=== PATIENT | male | born 1985 | race Caucasian/White ===

== ENCOUNTER 2022-01-25 10:02 | Emergency (ER) | payer OTHER, SELFPAY ==
[2022-01-25 10:10] VITALS: BP 126/65; PULSE 90; RESP 18; TEMP 37; O2SAT 98
--- NOTE | 2022-01-25 10:15 | ED.CHESTPAIN ---
HPI - Chest Pain General Chief Complaint: Chest Pain Stated Complaint: heartburn sob chest pain Time Seen by Provider: 01/25/22 10:25 Source: patient Mode of arrival: ambulatory Limitations: no limitations History of Present Illness HPI narrative: 37-year-old male with a history of diabetes and MO presented for complaint of heartburn, chest pain, increased shortness of breath, and vomiting since yesterday. Patient also states he had to sleep most of the day yesterday. Endorses increased thirst and urination. He denies cough, abdominal pain, fevers or chills. Patient does not have a PCP, he states his last A1c was over 11 approximately 1 year ago has been taking 70/30 insulin that he buys [id number]. States he took some insulin last night. Has taken Tums, drank milk and ate bread for the heartburn symptoms that he described as mid chest tightness. States he just wants a work note to return tomorrow. Related Data Home Medications Medication Instructions Recorded Confirmed No Home Medications 01/25/22 01/25/22 Allergies Allergy/AdvReac Type Severity Reaction Status Date / Time Penicillins Allergy Unknown Rash Verified 01/25/22 10:24 lisinopril AdvReac Unknown Verified 01/25/22 10:36 Review of Systems Review of Systems: CONSTITUTIONAL: Denies body aches, fever, chills, or sweats. EYES: Denies visual changes, redness, or discharge. ENT: Denies rhinorrhea, congestion, sore throat, or otalgia. CARDIOVASCULAR: Denies palpitations, or edema. RESPIRATORY: Denies cough GASTROINTESTINAL: Denies abdominal pain GENITOURINARY: Denies dysuria or hematuria. SKIN: Denies rash, itching, or wounds. MUSCULOSKELETAL: Denies back pain, joint pain, or myalgia. NEUROLOGIC: Denies headache, numbness, tingling, or weakness. All systems reviewed & are unremarkable except as noted in HPI and below PMFSH Family History Family History Other Asthma Diabetes mellitus Family history of congestive heart failure Family history of malignant neoplasm Social History Social History Alcohol intake: never Comments At time of signature, I have reviewed and agree with nursing past medical, surgical, social and family history unless otherwise noted. Please see nursing chart for further information. There is no relevant family history pertinent to the presenting complaint Exam Narrative: GENERAL: Well-appearing EYES: EOMI. No redness or drainage. Conjunctivae normal. ENT: Mucous membranes pink and moist. No rhinorrhea. TMs normal bilaterally. Throat normal. Uvula midline. NECK: Normal AROM. Supple. No lymphadenopathy. CHEST: No respiratory distress. Clear to auscultation. HEART: Regular rate and rhythm. No murmur appreciated. ABDOMEN: Soft, nontender, nondistended, normal active bowel sounds. EXTREMITIES: Normal range of motion. No edema. SKIN: Warm, dry, no rash. Capillary refill normal. Normal skin turgor. NEURO: Alert and oriented x3. Gait steady. PSYCH: Talkative Course Course Emergency Course: Patient is aware of diagnosis, understands and agrees to treatment plan. Anticipatory guidance given. Patient agrees to follow-up as directed and is aware of reasons to seek care at the emergency department. Portions of this record may have been created with voice recognition software Level of Care: Express Care Visit Vital Signs Vital signs: Vital Signs Temperature 98.6 F 01/25/22 10:10 Pulse Rate 90 01/25/22 10:10 Respiratory Rate 18 01/25/22 10:10 Blood Pressure 126/65 01/25/22 10:10 Pulse Oximetry 98 01/25/22 10:10 Oxygen Delivery Room Air 01/25/22 10:10 Temperature 98.6 F 01/25/22 10:10 Pulse Rate 90 01/25/22 10:10 Respiratory Rate 18 01/25/22 10:10 Blood Pressure 126/65 01/25/22 10:10 Pulse Oximetry 98 01/25/22 10:10 Oxygen Delivery Room Air 01/25/22 1
--- NOTE | 2022-01-25 10:28 | ECG_ITS ---
Measurements Intervals [place] Rate: 88 P: 19 [place]: 145 QRS: 0 QRSD: 84 T: 28 QT: 346 QTc: 420 Interpretive Statements SINUS RHYTHM Nonspecific T-wave abnormality Abnormal ECG NO PREVIOUS ECG AVAILABLE FOR COMPARISON Electronically Signed On 01-25-2022 12:35:08 CDT by Mino Contreras M.D.
[2022-01-25 10:29] LABS: Glucose Point of Care > 500 mg/dl (65-105)
[2022-01-25] MEDS: ONDANSETRON HCL ODT 4 MG TABLET SUBLINGUAL (10:39)
== END 2022-01-25 10:50 | disposition left against medical advice (07) ==
PROVIDERS: Emergency Provider Nurse Practitioner Family
DX: E11.65 Type 2 diabetes mellitus with hyperglycemia (principal); R07.9 Chest pain, unspecified; Z79.4 Long term (current) use of insulin; R94.31 Abnormal electrocardiogram [ECG] [EKG]
CPT/HCPCS: 82948; 93005; 99203; A9270; G0463

== ENCOUNTER 2022-02-01 14:20 | Outpatient (CLI) | payer OTHER, SELFPAY ==
[2022-02-01 18:44] LABS: Hematocrit 47.3 % (42.0-52.0); Hemoglobin 15.4 g/dL (14.0-18.0); Mean Corpuscular HGB Conc 32.6 g/dl (32-36); Mean Corpuscular Hemoglobin 31.4 pg (26-34); Mean Corpuscular Volume 96.3 fl (80-100); Mean Platelet Volume 10.4 fl (7.4-10.4); Platelet Count Result 286 k/mm3 (150-375); Red Blood Count 4.91 M/mm3 (4.6-6.20); Red Cell Distribution Width 13.2 % (11.5-14.5); White Blood Count 7.4 K/mm3 (4.5-10.0)
[2022-02-01 19:26] LABS: Creatinine Urine 57.9 mg/dL
[2022-02-01 19:38] LABS: MALB Creatinine Ratio 22.8 mg/g (0-30); Microalbumin Urine Random 13.2 mg/L (0-16.7)
[2022-02-01 19:55] LABS: Hemoglobin A1C 11.2 % (<5.7)
[2022-02-01 20:21] LABS: LDL Cholesterol Direct 175 mg/dL
[2022-02-01 20:29] LABS: Alanine Aminotransferase 24 U/L (6-50); Albumin Level 4.5 g/dL (3.5-5.1); Alkaline Phosphatase 83 U/L (38-126); Anion Gap 10 mmol/L (8-16); Aspartate Amino Transferase 42 U/L (17-59); Bilirubin,Total 0.3 mg/dL (0.2-1.3); Blood Urea Nitrogen 13 mg/dL (9-20); Calcium 9.3 mg/dL (8.4-10.2); Carbon Dioxide 27 mmol/L (22-30); Chloride 105 mmol/L (98-107); Cholesterol 294 mg/dL (0-200); Estimated Glomerular Filt Rate > 60; Glucose 59 mg/dL (65-110); HDL Direct 74 mg/dL; Potassium 3.7 mmol/L (3.4-5.0); Sodium 142 mmol/L (137-145); Triglycerides 187 mg/dL (<150)
[2022-02-05 05:52] LABS: Triiodothyronine T3 Free 2.8 pg/mL (2.3-4.2)
== END 2022-02-01 14:21 | disposition home or self-care (01) ==
LOC: ANHBWCLAB 14:22
PROVIDERS: PCP Family Medicine; Visit Provider Family Medicine
DX: Z00.00 Encounter for general adult medical examination without abnormal findings (principal); E11.9 Type 2 diabetes mellitus without complications; K21.9 Gastro-esophageal reflux disease without esophagitis; E07.9 Disorder of thyroid, unspecified
CPT/HCPCS: 36415; 80053; 80061; 82043; 83036; 84439; 84443; 84481; 85027

== ENCOUNTER 2022-05-08 07:33 | Outpatient (CLI) | payer OTHER, SELFPAY ==
[2022-05-08 20:06] LABS: Hemoglobin A1C 9.2 % (<5.7)
[2022-05-08 20:31] LABS: Creatinine Urine 309.1 mg/dL
[2022-05-08 20:37] LABS: MALB Creatinine Ratio 18.1 mg/g (0-30); Microalbumin Urine Random 55.9 mg/L (0-16.7)
== END 2022-05-08 07:34 | disposition home or self-care (01) ==
PROVIDERS: PCP Family Medicine; Visit Provider Family Medicine
DX: E11.9 Type 2 diabetes mellitus without complications (principal); E07.9 Disorder of thyroid, unspecified
CPT/HCPCS: 36415; 82043; 83036; 84443

== ENCOUNTER 2022-08-07 07:37 | Outpatient (CLI) | payer OTHER, SELFPAY ==
[2022-08-07 19:33] LABS: Cholesterol 285 mg/dL (0-200); HDL Direct 65 mg/dL; Triglycerides 97 mg/dL (<150)
[2022-08-07 19:37] LABS: Hemoglobin A1C 9.8 % (<5.7)
[2022-08-07 19:43] LABS: LDL Cholesterol Direct 156 mg/dL
[2022-08-07 20:04] LABS: Free T4 Free Thyroxine 0.93 ng/mL (0.78-2.19)
== END 2022-08-07 07:38 | disposition home or self-care (01) ==
PROVIDERS: PCP Family Medicine; Visit Provider Family Medicine
DX: E07.9 Disorder of thyroid, unspecified (principal); E11.9 Type 2 diabetes mellitus without complications; K21.9 Gastro-esophageal reflux disease without esophagitis
CPT/HCPCS: 36415; 80061; 83036; 84439; 84443; 84481

== ENCOUNTER 2023-01-16 10:11 | Emergency (ER) | payer OTHER, SELFPAY ==
--- NOTE | ~2023-01-16 | CT_ITS ---
CT of the Abdomen and Pelvis: Indication: Abdominal pain Technique: 2.5 mm axial scans were obtained through the abdomen and pelvis following intravenous adm inistration of 100 cc of Omnipaque 350. Dose reduction technique was used on this scan by utilizing a utomated exposure control and iterative reconstruction technique. The dose-length product (DLP) was 9 54.31 mGy-cm. Findings: Scans through the lung bases demonstrate small hiatal hernia. The liver, spleen, pancreas, gallbladder, adrenals and kidneys are within normal limits. No evidence of aortic aneurysm. No lymphadenopathy. No bowel obstruction or bowel wall thickening. There is no evidence to suggest acute appendicitis. Th ere is a small fat-containing mass with focal calcifications in the left lower quadrant anteriorly (a xial image 166), with benign appearance. Images through the pelvis were performed. Urinary bladder unremarkable. Prostate gland and sella vesi cles are unremarkable. No ascites. Impression: No significant abnormalities seen. Reviewed, dictated and finalized at location . Impression: No significant abnormalities seen.
[2023-01-16 10:17] VITALS: BP 142/96; PULSE 71; RESP 19; TEMP 36.3; O2SAT 98
[2023-01-16 10:51] LABS: Basophils Absolute Auto 0.1 K/mm3 (0.0-0.1); Basophils Percent Auto 0.9 % (0.2-1.2); Eosinophils Absolute Auto 0.3 K/mm3 (0-0.3); Eosinophils Percent Auto 3.4 % (0-4.4); Hematocrit 41.6 % (42.0-52.0); Hemoglobin 13.9 g/dL (14.0-18.0); Immature Granulocyte Absolute 0.02 K/mm3 (0.00-0.031); Immature Granulocyte Percent A 0.3 % (0-0.5); Lymphocytes Absolute Auto 1.82 K/mm3 (0.9-3.2); Mean Corpuscular HGB Conc 33.4 g/dl (32-36); Mean Corpuscular Hemoglobin 31.5 pg (26-34); Mean Corpuscular Volume 94.3 fl (80-100); Mean Platelet Volume 10.8 fl (7.4-10.4); Monocytes Absolute Auto 0.4 K/mm3 (0.1-0.6); Monocytes Percent Auto 5.8 % (2.6-8.5); Neutrophils Percent Auto 65.6 % (45.5-73.1); Platelet Count Result 234 k/mm3 (150-375); Red Blood Count 4.41 M/mm3 (4.6-6.20); Red Cell Distribution Width 12.8 % (11.5-14.5); White Blood Count 7.6 K/mm3 (4.5-10.0)
[2023-01-16 11:06] LABS: Alanine Aminotransferase 23 U/L (6-50); Albumin Level 3.9 g/dL (3.5-5.1); Alkaline Phosphatase 70 U/L (38-126); Anion Gap 7 mmol/L (8-16); Aspartate Amino Transferase 28 U/L (17-59); Bilirubin,Total 0.5 mg/dL (0.2-1.3); Blood Urea Nitrogen 9 mg/dL (9-20); Calcium 9.1 mg/dL (8.4-10.2); Carbon Dioxide 25 mmol/L (22-30); Chloride 108 mmol/L (98-107); Estimated CRCL calculation 151 ml/min; Estimated Glomerular Filt Rate > 60; Glucose 68 mg/dL (65-110); Lipase 59 U/L (23-300); Potassium 3.8 mmol/L (3.4-5.0); Sodium 140 mmol/L (137-145)
[2023-01-16 11:50] LABS: Appearance Urine Clear (Clear); Bacteria Urine None Seen /hpf; Bilirubin Urine Negative (Negative); Blood Urine Negative (Negative); Color Urine Yellow (Yellow); Glucose Urine UA 3+ mg/dL (Negative); Ketones Urine Trace mg/dL (Negative); Leukocyte Esterase Ur Negative LEU/UL (Negative); Need Manual Microscopic Reviewed; Nitrate Urine Negative (Negative); Non Pathogenic Casts 0-2; Protein Urine Trace mg/dL (Negative); RBC Urine 0-2 /hpf (0-2); Specific Grav Ur 1.029 (1.001-1.035); Squamous Epithelial Cell Urine None seen /hpf (Few); WBC Urine 0-5 /hpf; pH Urine 5.5 (5.0-9.0)
[2023-01-16 11:56] LABS: Add Urine Microscopic? YES
--- NOTE | 2023-01-16 12:41 | ED.ABDPAIN ---
HPI - Abdominal Pain General Chief Complaint: Abdominal Pain Stated Complaint: abd pain Time Seen by Provider: 01/16/23 11:57 Source: patient Mode of arrival: ambulatory Limitations: no limitations History of Present Illness HPI narrative: 37 years old white male presents with right lower quadrant pain, denies any fever, chills, nausea, vomiting, radiation of pain, aggravation or relieving factors. Patient works to change the oil. No trauma. History of diabetes Related Data Allergies Allergy/AdvReac Type Severity Reaction Status Date / Time Penicillins Allergy Unknown Rash Verified 08/28/22 15:13 morphine Allergy itching/ Verified 08/28/22 15:13 Burning lisinopril AdvReac Unknown Verified 08/28/22 15:13 Review of Systems Review of Systems: All systems reviewed & are unremarkable except as noted in HPI and below PMFSH Family History Family History Father History of ETOH abuse Diabetes mellitus Hypertension Mother Depression Grandparent Asthma Diabetes mellitus Depression Grandparent Asthma Other Family history of congestive heart failure Family history of malignant neoplasm Social History Social History Smoking status: Never smoker Smokeless tobacco user: chewing tobacco Alcohol intake: never Substance use: never Substance use type: does not use Lack of Transportation: No Lack of Food: Never True Current Housing: I Have Housing Concerned About Future Housing: No Difficulty Paying Gas/Electric Bills: No Difficulty Paying for Meds: No Currently Unemployed: No Education: High School Diploma/GED Difficulty w/ Childcare or Family Care: No Occupation/Education: occupation Additional occupation/education comments: [employer] Gender identity (if verbalized by the patient): Male Agree to blood products: No Exam Narrative: General appearance: Well-developed, well-nourished Skin: Normal color Head: Normocephalic, nontraumatic Eyes: Clear conjunctiva ENT: Oropharynx normal, ears normal, nose normal Neck: Supple, nontender Chest and respiratory: Airway patent, no respiratory distress, no accessory muscle use Heart: Regular rate/rhythm Abdomen: Soft, nontender, no organomegaly, quiet bowel sounds Vascular: Normal peripheral pulses, normal capillary refill. Musculoskeletal: Normal range of motion, nontender back Neurologic: Alert and oriented ?3, SITE LEADER is normal as tested, no gross motor deficit Course Vital Signs Vital signs: Vital Signs Temperature 36.3 C L 01/16/23 10:17 Pulse Rate 71 01/16/23 10:17 Respiratory Rate 19 01/16/23 10:17 Blood Pressure 142/96 H 01/16/23 10:17 Pulse Oximetry 98 01/16/23 10:17 Temperature 36.3 C L 01/16/23 10:17 Pulse Rate 71 01/16/23 10:17 Respiratory Rate 19 01/16/23 10:17 Blood Pressure 142/96 H 01/16/23 10:17 Pulse Oximetry 98 01/16/23 10:17 MDM - Abdominal Pain MDM Narrative Medical decision making narrative: Patient came to the ED with lower abdominal pain, physical examination showed no abdominal tenderness, patient works a physical job, abdominal wall muscle strain/sprain is my concern. Workup today include CBC, CMP, lipase, urinalysis, CT abdomen and pelvis with IV contrast showed no acute abnormalities. Patient received 1 L of normal saline IV, 4 mg Zofran IV and dextrose 25 g IV prior to discharge. Currently patient feeling much better, asymptomatic. A sandwich and drink was given to the patient prior to discharge. Differential Diagnosis Differential diagnosis: Likely abdominal
[2023-01-16] MEDS: SODIUM CHLORIDE 0.9% IV 1,000 ML 999 ML IV CONT (13:07)
[2023-01-16] MEDS: DEXTROSE 50% 25 GM/50 ML SYRINGE IV PUSH (13:07)
[2023-01-16] MEDS: ONDANSETRON INJ 4 MG/2 ML VIAL IV PUSH (13:07)
[2023-01-16 13:11] LABS: Glucose Point of Care 44 mg/dl (65-105)
[2023-01-16 13:48] LABS: Glucose Point of Care 114 mg/dl (65-105)
[2023-01-16 14:59] VITALS: BP 137/89; PULSE 70; RESP 18; O2SAT 99
== END 2023-01-16 15:00 | disposition home or self-care (01) ==
PROVIDERS: Emergency Provider Emergency Medicine; PCP Family Medicine
DX: R10.31 Right lower quadrant pain (principal); F17.220 Nicotine dependence, chewing tobacco, uncomplicated
CPT/HCPCS: 36415; 74177; 80053; 81001; 82948; 83690; 85025; 96361; 96374; 96375; 99284; J2405; J7030; Q9967

== ENCOUNTER 2023-02-02 10:10 | Emergency (ER) | payer OTHER, SELFPAY ==
[2023-02-02] VITALS (15 sets, daily range): BP systolic 138–143; BP diastolic 84–94; PULSE 63–76; RESP 11–23; TEMP 36.5; O2SAT 95–100
--- NOTE | ~2023-02-02 | XR_ITS ---
EXAMINATION: XR chest 1V portable 02/02/2023 11:47 INDICATION: Midsternal chest pain PROCEDURE: AP portable chest COMPARISON: 04/05/2016 FINDINGS: The lungs are clear. The cardiomediastinal silhouette is within normal limits. There are no pleural effusions. There is no pneumothorax suspected. IMPRESSION: 1: NO ACUTE CARDIOPULMONARY DISEASE. Reviewed, dictated and finalized at location B.
--- NOTE | 2023-02-02 10:52 | ECG_ITS ---
Measurements Intervals [place] Rate: 64 P: 0 [place]: 138 QRS: -8 QRSD: 89 T: -4 QT: 358 QTc: 372 Interpretive Statements SINUS RHYTHM WITHIN NORMAL LIMITS COMPARED TO ECG 01/25/2022 10:23:08 NO SIGNIFICANT CHANGES Electronically Signed On 02-02-2023 14:47:31 CDT by Fernandez Farias M.D.
[2023-02-02 11:10] LABS: Basophils Absolute Auto 0.1 K/mm3 (0.0-0.1); Eosinophils Absolute Auto 0.4 K/mm3 (0-0.3); Hematocrit 41.2 % (42.0-52.0); Immature Granulocyte Absolute 0.01 K/mm3 (0.00-0.031); Immature Granulocyte Percent A 0.1 % (0-0.5); Lymphocytes Absolute Auto 1.76 K/mm3 (0.9-3.2); Lymphocytes Percent Auto 24.5 % (18.3-44.2); Mean Corpuscular Hemoglobin 32.3 pg (26-34); Mean Corpuscular Volume 94.9 fl (80-100); Mean Platelet Volume 10.5 fl (7.4-10.4); Monocytes Absolute Auto 0.4 K/mm3 (0.1-0.6); Monocytes Percent Auto 5.2 % (2.6-8.5); Neutrophils Absolute Auto 4.6 K/mm3 (1.3-6.7); Neutrophils Percent Auto 64.2 % (45.5-73.1); Platelet Count Result 264 k/mm3 (150-375); Red Blood Count 4.34 M/mm3 (4.6-6.20); White Blood Count 7.2 K/mm3 (4.5-10.0)
[2023-02-02 11:28] LABS: Alanine Aminotransferase 21 U/L (6-50); Alkaline Phosphatase 66 U/L (38-126); Anion Gap 3 mmol/L (8-16); Aspartate Amino Transferase 25 U/L (17-59); Bilirubin,Total 0.5 mg/dL (0.2-1.3); Blood Urea Nitrogen 10 mg/dL (9-20); Carbon Dioxide 29 mmol/L (22-30); Chloride 106 mmol/L (98-107); Estimated CRCL calculation 152 ml/min; Estimated Glomerular Filt Rate > 60; Glucose 89 mg/dL (65-110); Lipase 56 U/L (23-300); Potassium 3.6 mmol/L (3.4-5.0); Sodium 138 mmol/L (137-145)
[2023-02-02 11:35] LABS: Troponin I < 0.012 ng/mL (0.000-0.034)
--- NOTE | 2023-02-02 12:03 | ED.CHESTPAIN ---
HPI - Chest Pain General Chief Complaint: Chest Pain Stated Complaint: chest pain Time Seen by Provider: 02/02/23 11:57 History of Present Illness HPI narrative: Patient is a 38-year-old male with known history of hiatal hernia here with chest pain that has been intermittent for more than a year. He states that about a year ago he was seen for the same pain, referred to a dock hand who did a stress test and found to be unremarkable. At that time he was told that the pain is likely due to his hiatal hernia. He notes that the pain began again last night and has worsened throughout the day today prompting him to be seen in the emergency department. It is mid chest, nonradiating, sharp in sensation and he feels some associated pain in between his shoulder blades of his back. He has not taken anything for the pain at home. No associated nausea or diaphoresis. He has a history of diabetes, typically well controlled blood sugars. No cough, congestion, fever, chills. He has never had an upper endoscopy in the past. Related Data Allergies Allergy/AdvReac Type Severity Reaction Status Date / Time Penicillins Allergy Unknown Rash Verified 08/28/22 15:13 morphine Allergy itching/ Verified 08/28/22 15:13 Burning lisinopril AdvReac Unknown Verified 08/28/22 15:13 Review of Systems Review of Systems: CONSTITUTIONAL: Denies fever, chills, or sweats. EYES: Denies visual changes, redness, or discharge. ENT: Denies rhinorrhea, congestion, sore throat, or otalgia. CARDIOVASCULAR: chest pain, denies palpitations, or edema. RESPIRATORY: Denies cough or dyspnea. GASTROINTESTINAL: Denies abdominal pain, nausea, vomiting, or diarrhea. GENITOURINARY: Denies dysuria or hematuria. SKIN: Denies rash or itching. MUSCULOSKELETAL: Denies back pain, joint pain, or myalgia. NEUROLOGIC: Denies headache, numbness, or weakness. PSYCHIATRIC: Denies anxiety or depression. [facility] Family History Family History Father History of ETOH abuse Diabetes mellitus Hypertension Mother Depression Grandparent Asthma Diabetes mellitus Depression Grandparent Asthma Other Family history of congestive heart failure Family history of malignant neoplasm Social History Social History Smoking status: Never smoker Smokeless tobacco user: chewing tobacco Alcohol intake: never Substance use: never Substance use type: does not use Lack of Transportation: No Lack of Food: Never True Current Housing: I Have Housing Concerned About Future Housing: No Difficulty Paying Gas/Electric Bills: No Difficulty Paying for Meds: No Currently Unemployed: No Education: High School Diploma/GED Difficulty w/ Childcare or Family Care: No Occupation/Education: occupation Additional occupation/education comments: [employer] Gender identity (if verbalized by the patient): Male Agree to blood products: No Exam Narrative: GENERAL: Well-appearing, well-nourished, and in no acute distress. HEAD: Normocephalic, atraumatic. EYES: PERRLA and EOMI. ENT: Nares clear. Mucous membranes moist. NECK: Supple. CHEST: Clear to auscultation. No respiratory distress. HEART: Regular rate and rhythm. Normal peripheral pulses. ABDOMEN: Soft, nontender, nondistended. EXTREMITIES: Normal range of motion. No edema. SKIN: Warm, dry, no rash. NEURO: No focal deficits. Alert and oriented x3. PSYCH: Normal mood and affect. Course Course Emergency Course: Chart review performed. Patient here with chest pain while driving to work. Triage vitals within normal limits. Last ED visit was on 01/16/23 for abdominal pain. He was discharged after a negative workup. Triage workup shows normal CBC, initial troponin negative, normal electrolytes. Patient seen evaluated, no acute distress. His blood sugar was 54, he is alert and oriented on m
[2023-02-02 12:15] LABS: Glucose Point of Care 54 mg/dl (65-105)
[2023-02-02] MEDS: IBUPROFEN 600 MG TABLET PO (12:29)
[2023-02-02] MEDS: ACETAMINOPHEN 500 MG TABLET 1000 MG PO (12:29)
[2023-02-02] MEDS: ONDANSETRON INJ 4 MG/2 ML VIAL IV PUSH (12:29)
[2023-02-02] MEDS: BELLADONNA ALK/PHENOB ELIX 10 ML, MAG HYDROX/ALUMINUM HYD/SIMETH 30 ML, LIDOCAINE HCL 2... PO (12:33)
[2023-02-02] MEDS: PANTOPRAZOLE SODIUM IV 40 MG VIAL IV PUSH (12:33)
[2023-02-02 13:29] LABS: INR 0.9; Prothrombin Time 12.5 Seconds (11.1-14.7)
[2023-02-02 13:30] LABS: Partial Thromboplastin Time 26.9 SECONDS (22.3-36.8)
[2023-02-02 13:37] LABS: Troponin I < 0.012 ng/mL (0.000-0.034)
[2023-02-02 15:00] LABS: Glucose Point of Care 153 mg/dl (65-105)
== END 2023-02-02 15:08 | disposition home or self-care (01) ==
PROVIDERS: Emergency Medicine; Emergency Provider Student in an Organized Health Care Education/Training Program; PCP Family Medicine
DX: R07.89 Other chest pain (principal)
CPT/HCPCS: 36415; 71045; 80053; 82948; 83690; 84484; 85025; 85610; 85730; 93005; 96374; 96375; 99284; A9270; C9113; J2405

== ENCOUNTER 2023-03-12 10:18 | Outpatient (CLI) | payer OTHER, MEDICAID, SELFPAY ==
[2023-03-12 19:49] LABS: Cholesterol 238 mg/dL (0-200); HDL Direct 60 mg/dL; Triglycerides 103 mg/dL (<150)
[2023-03-12 20:00] LABS: LDL Cholesterol Direct 139 mg/dL
[2023-03-12 20:38] LABS: Creatinine Urine 155.3 mg/dL
[2023-03-12 20:42] LABS: MALB Creatinine Ratio 16.1 mg/g (0-30)
[2023-03-12 22:13] LABS: Hemoglobin A1C 9.2 % (<5.7)
== END 2023-03-12 10:19 | disposition home or self-care (01) ==
LOC: ANHBWCLAB 10:22
PROVIDERS: PCP Nurse Practitioner Adult Health; Visit Provider Nurse Practitioner Adult Health
DX: E11.9 Type 2 diabetes mellitus without complications (principal); E07.9 Disorder of thyroid, unspecified
CPT/HCPCS: 36415; 80061; 82043; 83036; 84443

== ENCOUNTER 2023-05-10 08:32 | Outpatient (CLI) | payer OTHER, SELFPAY ==
--- NOTE | ~2023-05-10 | XR_ITS ---
Supine and upright views of the abdomen Clinical history: Abdominal pain Findings: Bowel gas pattern is nonspecific. Moderate stool present. No evidence for obstruction or fr ee air. No abnormal mass lesion or calcification is seen. Osseous structures are intact. Impression: Moderate stool. Correlate for constipation. Reviewed, dictated and finalized at [facility]. ANTY CLERK Impression: Moderate stool. Correlate for constipation.
== END 2023-05-10 08:33 | disposition home or self-care (01) ==
LOC: ANHBWCLAB 08:35
PROVIDERS: PCP Nurse Practitioner Adult Health; Visit Provider Nurse Practitioner Adult Health
DX: E07.9 Disorder of thyroid, unspecified (principal); R10.9 Unspecified abdominal pain
CPT/HCPCS: 36415; 74018; 84443

== ENCOUNTER 2023-05-31 21:39 | Emergency (ER) | payer OTHER, SELFPAY ==
[2023-05-31 22:20] VITALS: BP 132/81; PULSE 77; RESP 16; TEMP 36.3; O2SAT 96
--- NOTE | 2023-05-31 23:16 | ED.GENADULT ---
HPI - General Adult General Chief complaint: Upper Respiratory Infection Stated complaint: flu, needs work note Time Seen by Provider: 05/31/23 22:47 Source: patient Mode of arrival: ambulatory Limitations: no limitations History of Present Illness HPI narrative: This is a 30-year-old male who presents to the ED for a work note. He was diagnosed with the flu recently and was unable to get a work note from his primary doctor. He has no further complaints other than URI symptoms. He is able to control symptoms at home with [id number] medications. Related Data Home Medications Medication Instructions Recorded Confirmed insulin aspar prt-insulin aspart 40 unit subcut BID 03/12/23 05/28/23 100 unit/mL (70-30) subcutaneous soln (Novolog Mix 70-30 U-100 Insuln) Allergies Allergy/AdvReac Type Severity Reaction Status Date / Time Penicillins Allergy Unknown Rash Verified 05/10/23 07:50 morphine Allergy itching/ Verified 05/10/23 07:50 Burning lisinopril AdvReac Unknown Verified 05/10/23 07:50 Review of Systems Review of Systems: All systems as dictated in HPI [facility] Family History Family History Father History of ETOH abuse Diabetes mellitus Hypertension Mother Depression Grandparent Asthma Diabetes mellitus Depression Grandparent Asthma Other Family history of congestive heart failure Family history of malignant neoplasm Social History Social History Smoking status: Never smoker Smokeless tobacco user: chewing tobacco Alcohol intake: never Substance use: never Substance use type: does not use Lack of Transportation: No Lack of Food: Never True Current Housing: I Have Housing Concerned About Future Housing: No Difficulty Paying Gas/Electric Bills: No Difficulty Paying for Meds: No Currently Unemployed: No Education: High School Diploma/GED Difficulty w/ Childcare or Family Care: No Occupation/Education: occupation Additional occupation/education comments: [employer] Gender identity (if verbalized by the patient): Male Agree to blood products: No Exam Narrative: GENERAL: Well-appearing, well-nourished, and in no acute distress. HEAD: Normocephalic, atraumatic. EYES: PERRLA and EOMI. ENT: Nares clear, no rhinorrhea or epistaxis. Mucous membranes moist. Oropharynx without tonsillar hypertrophy exudate or other lesions. NECK: Supple. No adenopathy or masses. CHEST: No respiratory distress. Clear to auscultation. No wheezes rales or rhonchi HEART: Regular rate and rhythm. No murmur heard. Normal peripheral pulses. ABDOMEN: Soft, nontender, nondistended, normal active bowel sounds. MSK: Normal range of motion. No edema. SKIN: Warm, dry, no rash. NEURO: Alert and oriented x3. No focal deficits. PSYCH: Normal mood and affect. Course Vital Signs Vital signs: Vital Signs Temperature 97.4 F L 05/31/23 22:20 Pulse Rate 77 05/31/23 22:20 Respiratory Rate 16 05/31/23 22:20 Blood Pressure 132/81 05/31/23 22:20 Pulse Oximetry 96 05/31/23 22:20 Oxygen Delivery Room Air 05/31/23 22:20 Temperature 97.4 F L 05/31/23 22:20 Pulse Rate 77 05/31/23 22:20 Respiratory Rate 16 05/31/23 22:20 Blood Pressure 132/81 05/31/23 22:20 Pulse Oximetry 96 05/31/23 22:20 Oxygen Delivery Room Air 05/31/23 22:20 Medical Decision Making MDM Narrative Medical decision making narrative: This is a 30-year-old male presents the ED for work note after being diagnosed with the flu. He has normal vital signs. Normal physical exam. Symptoms consistent with viral syndrome. He will be given work note and discharged in stable condition. Vital Signs Vital Signs: Vital Signs Temperature 97.4 F L 05/31/23 22:20 Pulse Rate 77 05/31/23 22:20 Respiratory Rate 16 05/31/23 22:20 Blood
== END 2023-06-01 00:11 | disposition home or self-care (01) ==
LOC: ANHED 23:45
PROVIDERS: Emergency Provider Physician Assistant; PCP Nurse Practitioner Adult Health
DX: J11.1 Influenza due to unidentified influenza virus with other respiratory manifestations (principal); E11.9 Type 2 diabetes mellitus without complications; F17.220 Nicotine dependence, chewing tobacco, uncomplicated; Z79.4 Long term (current) use of insulin
CPT/HCPCS: 99282

== ENCOUNTER 2023-08-22 08:42 | Emergency (ER) | payer OTHER, SELFPAY ==
--- NOTE | 2023-08-22 08:50 | ED.NAVMDI ---
HPI - Nausea/Vomiting/Diarrhea General Chief complaint: Nausea/Vomiting/Diarrhea Stated complaint: cold/hot,vomiting Time Seen by Provider: 08/22/23 08:50 Source: patient Mode of arrival: ambulatory Limitations: no limitations History of Present Illness HPI Narrative: Jhon is a 38-year-old male patient presenting to the clinic today with complaints of feeling hot with chills, runny nose, cough, and vomiting. He reports symptoms started last night. He has vomited this morning. Related Data Home Medications Medication Instructions Recorded Confirmed insulin aspar prt-insulin aspart 40 unit subcut BID 03/12/23 08/22/23 100 unit/mL (70-30) subcutaneous soln (Novolog Mix 70-30 U-100 Insuln) Allergies Allergy/AdvReac Type Severity Reaction Status Date / Time Penicillins Allergy Unknown Rash Verified 08/22/23 08:57 morphine Allergy itching/ Verified 08/22/23 08:57 Burning lisinopril AdvReac Unknown Verified 08/22/23 08:57 Review of Systems Review of Systems: Pertinent positives per HPI. Patient denies any rash, headache, visual changes, dizziness, cough, shortness of breath, chest pain, palpitations, diarrhea, constipation, abdominal pain, or any urinary issues. [facility] Family History Family History Father History of ETOH abuse Diabetes mellitus Hypertension Mother Depression Grandparent Asthma Diabetes mellitus Depression Grandparent Asthma Other Family history of congestive heart failure Family history of malignant neoplasm Social History Social History Smoking status: Never smoker Smokeless tobacco user: chewing tobacco Alcohol intake: never Substance use: never Substance use type: does not use Lack of Transportation: No Lack of Food: Never True Current Housing: I Have Housing Concerned About Future Housing: No Difficulty Paying Gas/Electric Bills: No Difficulty Paying for Meds: No Currently Unemployed: No Education: High School Diploma/GED Difficulty w/ Childcare or Family Care: No Occupation/Education: occupation Additional occupation/education comments: [employer] Gender identity (if verbalized by the patient): Male Agree to blood products: No Comments At the time of my signature, I reviewed and agree with the nursing past medical, surgical, social, and family history. There is no relevant family history pertinent to the patient complaint. Exam Narrative: General: Well-developed, well nourished, in no apparent distress Head: Normocephalic, atraumatic Eyes: Pupils equally round and reactive to light bilaterally, EOM intact, sclera and conjunctive clear, no discharge, lids normal Ears: TMs intact and clear, ear canals clear, no drainage, grossly hearing normal. Nose: Nares patent, clear nasal discharge, no inflammation, no sinus tenderness. Mouth: Oral pharynx without lesions or masses, good dentition, MMM. Tonsils surgically absent Neck: Supple, trachea midline, no enlargement of anterior or posterior cervical nodes, no thyroid masses or goiter palpable. Cardio: Regular rate and rhythm, s1 and s2 normal, no murmur appreciated. Resp: Clear to auscultation bilaterally, no rhonchi, rales, wheezing or rubs Abdomen: Soft, pliable, bowel sounds present in all quadrants, non-tender to palpation, no organomegly, no CVAT tenderness. Course Course Emergency Course: Portions of this record may have been created with voice recognition software. Level of Care: Express Care Visit Vital Signs Vital signs: Vital signs reviewed MDM - Nausea/Vomiting/Diarrhea MDM Narrative Medical decision making narrative: At the time of visit patient is resting comfortably on the exam table. Patient appears to be nontoxic. Labs: COVID and influenza testing was negative in the clinic today Plan: I suspect p
[2023-08-22 08:53] VITALS: BP 115/75; PULSE 67; RESP 16; TEMP 36.1; O2SAT 99
[2023-08-22 09:05] LABS: Glucose Point of Care 160 mg/dl (65-105)
== END 2023-08-22 09:33 | disposition home or self-care (01) ==
PROVIDERS: Emergency Provider Nurse Practitioner Family; PCP Nurse Practitioner Adult Health
DX: B34.9 Viral infection, unspecified (principal); J06.9 Acute upper respiratory infection, unspecified; K29.00 Acute gastritis without bleeding; Z20.822 Contact with and (suspected) exposure to COVID-19; F17.220 Nicotine dependence, chewing tobacco, uncomplicated; E78.00 Pure hypercholesterolemia, unspecified; E11.40 Type 2 diabetes mellitus with diabetic neuropathy, unspecified; E03.9 Hypothyroidism, unspecified; I25.2 Old myocardial infarction; Z86.16 Personal history of COVID-19
CPT/HCPCS: 82948; 87426; 87804; 99213; G0463

== ENCOUNTER 2023-09-03 22:57 | Emergency (ER) | payer OTHER, SELFPAY ==
[2023-09-03 23:05] VITALS: BP 121/74; PULSE 70; RESP 18; TEMP 36.4; O2SAT 99
[2023-09-04 00:38] LABS: Basophils Absolute Auto 0.1 K/mm3 (0.0-0.1); Basophils Percent Auto 1.1 % (0.2-1.2); Eosinophils Absolute Auto 0.4 K/mm3 (0-0.3); Hematocrit 43.2 % (42.0-52.0); Hemoglobin 14.8 g/dL (14.0-18.0); Immature Granulocyte Absolute 0.04 K/mm3 (0.00-0.031); Immature Granulocyte Percent A 0.5 % (0-0.5); Lymphocytes Absolute Auto 1.41 K/mm3 (0.9-3.2); Lymphocytes Percent Auto 16.9 % (18.3-44.2); Mean Corpuscular HGB Conc 34.3 g/dl (32-36); Mean Corpuscular Hemoglobin 32.2 pg (26-34); Mean Corpuscular Volume 94.1 fl (80-100); Mean Platelet Volume 10.8 fl (7.4-10.4); Monocytes Absolute Auto 0.5 K/mm3 (0.1-0.6); Monocytes Percent Auto 5.5 % (2.6-8.5); Neutrophils Absolute Auto 5.9 K/mm3 (1.3-6.7); Platelet Count Result 224 k/mm3 (150-375); Red Blood Count 4.59 M/mm3 (4.6-6.20); Red Cell Distribution Width 12.1 % (11.5-14.5); White Blood Count 8.4 K/mm3 (4.5-10.0)
[2023-09-04 00:54] LABS: Alanine Aminotransferase 25 U/L (6-50); Alkaline Phosphatase 72 U/L (38-126); Anion Gap 6 mmol/L (8-16); Aspartate Amino Transferase 37 U/L (17-59); Bilirubin,Total 0.5 mg/dL (0.2-1.3); Blood Urea Nitrogen 21 mg/dL (9-20); Calcium 9.3 mg/dL (8.4-10.2); Carbon Dioxide 25 mmol/L (22-30); Chloride 105 mmol/L (98-107); Estimated CRCL calculation 129 ml/min; Estimated Glomerular Filt Rate > 60; Glucose 327 mg/dL (65-110); Lipase 82 U/L (23-300); Potassium 3.7 mmol/L (3.4-5.0); Sodium 136 mmol/L (137-145)
[2023-09-04] MEDS: SODIUM CHLORIDE 0.9% IV 1,000 ML 999 ML IV CONT (01:32)
[2023-09-04] MEDS: ONDANSETRON INJ 4 MG/2 ML VIAL IV PUSH (01:33)
[2023-09-04] MEDS: PANTOPRAZOLE SODIUM IV 40 MG VIAL IV PUSH (01:33)
[2023-09-04 01:39] VITALS: BP 110/71; PULSE 59; RESP 20; O2SAT 100
--- NOTE | 2023-09-04 01:39 | ED.GENADULT ---
HPI - General Adult General Chief complaint: Nausea/Vomiting/Diarrhea Stated complaint: abd pain Time Seen by Provider: 09/04/23 01:15 History of Present Illness HPI narrative: Patient is a 38-year-old male who presents to the emergency department this evening complaining of nausea vomiting and epigastric discomfort. Patient is also complaining of acid reflux which he does struggle with. was currently present at bedside states that the patient does chew tobacco and sometimes swallows the tobacco which she is sure is not helping his symptoms. Patient has been taking omeprazole 20 mg daily for the past few days which she states has helped his symptoms. states that from time to time he will have these episodes of nausea and vomiting and epigastric discomfort. Patient also has a history of hiatal hernia. Patient is currently denying any abdominal pain, denies any urinary symptoms including dysuria or hematuria and has no additional symptoms or concerns at this time. There are no other modifying, alleviating, or precipitating factors at this time Related Data Home Medications Medication Instructions Recorded Confirmed insulin aspar prt-insulin aspart 40 unit subcut BID 03/12/23 08/22/23 100 unit/mL (70-30) subcutaneous soln (Novolog Mix 70-30 U-100 Insuln) Allergies Allergy/AdvReac Type Severity Reaction Status Date / Time morphine Allergy Intermediate itching/ Verified 09/03/23 23:11 Burning Penicillins Allergy Intermediate Rash Verified 09/03/23 23:11 lisinopril AdvReac Unknown Unknown Verified 09/03/23 23:11 Review of Systems Review of Systems: All systems are reviewed and are negative unless stated otherwise in the HPI. [facility] Family History Family History Father History of ETOH abuse Diabetes mellitus Hypertension Mother Depression Grandparent Asthma Diabetes mellitus Depression Grandparent Asthma Other Family history of congestive heart failure Family history of malignant neoplasm Social History Social History Smoking status: Never smoker Smokeless tobacco user: chewing tobacco Alcohol intake: never Substance use: never Substance use type: does not use Lack of Transportation: No Lack of Food: Never True Current Housing: I Have Housing Concerned About Future Housing: No Difficulty Paying Gas/Electric Bills: No Difficulty Paying for Meds: No Currently Unemployed: No Education: High School Diploma/GED Difficulty w/ Childcare or Family Care: No Occupation/Education: occupation Additional occupation/education comments: [employer] Gender identity (if verbalized by the patient): Male Agree to blood products: No Comments Past medical history significant for type 2 diabetes mellitus, acid reflux, hiatal hernia. Exam Narrative: General: Alert, awake, afebrile, in no acute distress. HEENT: PERRL, no rhinorrhea, no post nasal drip, oropharynx clear. Neck: Trachea midline, no JVD, no lymphadenopathy. Cardiovascular: Regular rate and rhythm, no murmurs, rubs or gallops, no peripheral edema. Respiratory: Clear to auscultation bilaterally, no tachypnea, no wheezing, no rhonchi, no rubs, no respiratory distress. Abdomen: Soft, nontender, nondistended, no rebound, no guarding, no peritoneal signs. Musculoskeletal: No joint swelling or deformity, normal muscle tone. Skin: No rashes or petechia, no signs of infection. Psychiatric: Alert and oriented, normal behavior and judgment for situation. Neurological: Alert and oriented to person, place, and time. Follows all commands. No focal deficits, speech is clear and fluent. Course Vital Signs Vital signs: Vital Signs Temperature 97.5 F L 09/03/23 23:05 Pulse Rate 70 09/03/23 23:05 Respiratory Rate 18 09/03/23 23:05 Blood Pressure 121/74 09/03/23 23:05
[2023-09-04 01:47] LABS: Bacteria Urine None Seen /hpf; Non Pathogenic Casts 0-2; RBC Urine 0-2 /hpf (0-2); Squamous Epithelial Cell Urine None Seen /hpf (Few); WBC Urine 0-5 /hpf (0-3)
[2023-09-04 01:52] LABS: Appearance Urine Clear (Clear); Bilirubin Urine Negative (Negative); Blood Urine Negative (Negative); Color Urine Yellow (Yellow); Glucose Urine UA 3+ mg/dL (Negative); Ketones Urine Negative (Negative); Leukocyte Esterase Ur Negative LEU/UL (Negative); Nitrate Urine Negative (Negative); Protein Urine Negative (Negative); Urobilinogen Urine 0.2 mg/dL (<2.0)
[2023-09-04 01:53] LABS: Add Urine Microscopic? YES
[2023-09-04 02:17] VITALS: BP 108/72; PULSE 62; RESP 19; O2SAT 99
[2023-09-04 05:59] LABS: Glucose Point of Care 323 mg/dl (65-105)
--- NOTE | 2023-09-12 15:07 | PC.NURSE ---
LATE ENTRY This note is being entered to document information to the patient's record. The following information was omitted on [09/04/23], by [Dilip Jimenez RN]. NS stop time [id number]
== END 2023-09-04 02:18 | disposition home or self-care (01) ==
PROVIDERS: Emergency Provider Emergency Medicine; PCP Nurse Practitioner Adult Health
DX: R11.2 Nausea with vomiting, unspecified (principal); K21.9 Gastro-esophageal reflux disease without esophagitis; F17.220 Nicotine dependence, chewing tobacco, uncomplicated; Z79.4 Long term (current) use of insulin; Z79.84 Long term (current) use of oral hypoglycemic drugs
CPT/HCPCS: 36415; 80053; 81001; 82948; 83690; 85025; 96361; 96374; 96375; 99284; C9113; J2405; J7030

== ENCOUNTER 2023-10-01 10:19 | Emergency (ER) | payer OTHER, SELFPAY ==
[2023-10-01] VITALS (32 sets, daily range): BP systolic 101–117; BP diastolic 67–83; PULSE 62–93; RESP 12–20; TEMP 36.7; O2SAT 91–98
[2023-10-01 12:47] LABS: Glucose Point of Care > 500 mg/dl (65-105)
[2023-10-01] MEDS: SODIUM CHLORIDE 0.9% IV 1,000 ML 999 ML IV CONT ×2 (13:11)
[2023-10-01 13:14] LABS: Basophils Absolute Auto 0.1 K/mm3 (0.0-0.1); Basophils Percent Auto 0.9 % (0.2-1.2); Eosinophils Absolute Auto 0.2 K/mm3 (0-0.3); Eosinophils Percent Auto 1.8 % (0-4.4); Hematocrit 46.9 % (42.0-52.0); Hemoglobin 16.2 g/dL (14.0-18.0); Immature Granulocyte Absolute 0.02 K/mm3 (0.00-0.031); Immature Granulocyte Percent A 0.2 % (0-0.5); Lymphocytes Absolute Auto 1.41 K/mm3 (0.9-3.2); Lymphocytes Percent Auto 15.3 % (18.3-44.2); Mean Corpuscular HGB Conc 34.5 g/dl (32-36); Mean Corpuscular Volume 92.5 fl (80-100); Mean Platelet Volume 10.9 fl (7.4-10.4); Monocytes Absolute Auto 0.4 K/mm3 (0.1-0.6); Monocytes Percent Auto 4.8 % (2.6-8.5); Neutrophils Absolute Auto 7.1 K/mm3 (1.3-6.7); Platelet Count Result 242 k/mm3 (150-375); Red Blood Count 5.07 M/mm3 (4.6-6.20); Red Cell Distribution Width 11.9 % (11.5-14.5); White Blood Count 9.2 K/mm3 (4.5-10.0)
[2023-10-01 13:16] LABS: Alveolar/Arterial O2 Gradient 32.3 mmHg; Base Excess ABG -7.8 mEq/l (+/-2.0); Carboxyhemoglobin 1.1 % THb (0-2.0); Fractional Inspired Oxygen 21 %; HCO3 ABG 16.6 mEq/l (22.0-26.0); Methemoglobin ABG 0.3 %THb (0-1.5); Modified Allen's Test Pass; Oxygen Saturation ABG 95.2 % (95.0-100.0); Oxyhemoglobin 92.5 % THb (90.0-100.0); PCO2 ABG 31.7 mmHg (35.0-45.0); PO2 ABG 79.5 mmHg (80.0-100.0); PO2 FiO2 Ratio Arterial Blood 3.79 %; Reduced Hemoglobin 6.1 %THb (0-5.0); Site Drawn LEFT RADIAL; Total Hemoglobin 16.1 g/dL (12.0-18.0); pH ABG 7.337 (7.350-7.450)
--- NOTE | 2023-10-01 13:32 | ED.GENADULT ---
HPI - General Adult General Chief complaint: Recheck/Abnormal Lab/Rx Stated complaint: high blood sugar, dr told pt to come to ED Time Seen by Provider: 10/01/23 12:45 History of Present Illness HPI narrative: Patient is a 38-year-old male who presents ER with elevated blood sugars. Patient reports he has been treating himself with insulin 70/30 for years. Last week his PCP switched him to Lantus in the evenings and some oral medication. Reports his blood sugars been running high does not know the actual number. Typically his blood sugars had been running in the 250-350. No fevers or chills or sweats. He does report he is very thirsty this morning and drink a lot of water. No new infectious symptoms. He has not been on any steroid medication. Related Data Home Medications Medication Instructions Recorded Confirmed insulin aspar prt-insulin aspart 40 unit subcut BID 03/12/23 09/05/23 100 unit/mL (70-30) subcutaneous soln (Novolog Mix 70-30 U-100 Insuln) Allergies Allergy/AdvReac Type Severity Reaction Status Date / Time morphine Allergy Intermediate itching/ Verified 10/01/23 10:21 Burning Penicillins Allergy Intermediate Rash Verified 10/01/23 10:21 lisinopril AdvReac Unknown Unknown Verified 10/01/23 10:21 Review of Systems Review of Systems: All systems reviewed & are unremarkable except as noted in HPI and below Constitutional: Constitutional: Denies chills, Denies fatigue and Denies fever(s) ENT: Reports system reviewed and no additional complaints, except as documented Cardiovascular: Cardiovascular: Reports no additional cardiovascular complaints Respiratory: Respiratory: Reports no additional respiratory complaints Gastrointestinal: Gastrointestinal: Reports no additional gastrointestinal complaints Endocrine: Endocrine: Denies excessive sweating, Denies fatigue, Reports polydipsia and Denies polyuria PMFSH Past Medical History Medical History (Updated 10/01/23 @ 18:21 by Gurvinder Maddox MD) Diabetes GERD (gastroesophageal reflux disease) HLD (hyperlipidemia) Hx of myocardial infarction Hypertension Neuropathy Thyroid disorder Surgical History Surgical History (Updated 10/01/23 @ 13:34 by Gurvinder Maddox MD) No pertinent past surgical history Family History Family History Father History of ETOH abuse Diabetes mellitus Hypertension Mother Depression Grandparent Asthma Diabetes mellitus Depression Grandparent Asthma Other Family history of congestive heart failure Family history of malignant neoplasm Social History Social History Smoking status: Never smoker Smokeless tobacco user: chewing tobacco Alcohol intake: never Substance use: never Substance use type: does not use Lack of Transportation: No Lack of Food: Never True Current Housing: I Have Housing Concerned About Future Housing: No Difficulty Paying Gas/Electric Bills: No Difficulty Paying for Meds: No Currently Unemployed: No Education: High School Diploma/GED Difficulty w/ Childcare or Family Care: No Occupation/Education: occupation Additional occupation/education comments: [employer] Gender identity (if verbalized by the patient): Male Agree to blood products: No Exam Narrative: GENERAL: Well-appearing, well-nourished, and in no acute distress. HEAD: Normocephalic, atraumatic. ENT: Mucous membranes moist. CHEST: Clear to auscultation. No respiratory distress. HEART: Regular rate and rhythm. Normal peripheral pulses. ABDOMEN: Soft, nontender, nondistended. EXTREMITIES: Normal range of motion. No edema. SKIN: Warm, dry, no rash. NEURO: Alert and oriented x3. PSYCH: Normal mood and affect. Course Course Emergency Course: Patient with slight acidosis with small gap. After 2 L IV fluid and IV insulin patient'
[2023-10-01 13:40] LABS: Alanine Aminotransferase 45 U/L (6-50); Albumin Level 4.7 g/dL (3.5-5.1); Alkaline Phosphatase 105 U/L (38-126); Anion Gap 14 mmol/L (4-12); Aspartate Amino Transferase 43 U/L (17-59); Bilirubin,Total 0.9 mg/dL (0.2-1.3); Blood Urea Nitrogen 29 mg/dL (9-20); Calcium 9.8 mg/dL (8.4-10.2); Carbon Dioxide 19 mmol/L (22-30); Chloride 100 mmol/L (98-107); Estimated CRCL calculation 104 ml/min; Estimated Glomerular Filt Rate > 60; Glucose 507 mg/dL (65-110); Magnesium 1.9 mg/dL (1.6-2.3); Phosphorus 5.6 mg/dL (2.5-4.5); Potassium 3.9 mmol/L (3.4-5.0); Sodium 133 mmol/L (137-145)
[2023-10-01 14:07] LABS: Glucose Point of Care 432 mg/dl (65-105)
[2023-10-01] MEDS: INSULIN HUMAN REGULAR (*BKC) 100 UNITS/ML 10 UNITS IV PUSH (14:14)
[2023-10-01 14:15] LABS: Appearance Urine Clear (Clear); Bilirubin Urine Negative (Negative); Blood Urine Negative (Negative); Color Urine Yellow (Yellow); Glucose Urine UA 3+ mg/dL (Negative); Ketones Urine 1+ mg/dL (Negative); Leukocyte Esterase Ur Negative LEU/UL (Negative); Nitrate Urine Negative (Negative); Protein Urine Negative (Negative); Urobilinogen Urine 0.2 mg/dL (<2.0)
[2023-10-01 14:28] LABS: Specific Grav Ur 1.039 (1.001-1.035)
[2023-10-01 14:29] LABS: Add Urine Microscopic? NO
[2023-10-01 14:50] LABS: Glucose Point of Care 359 mg/dl (65-105)
[2023-10-01 15:29] LABS: Alanine Aminotransferase 41 U/L (6-50); Alkaline Phosphatase 90 U/L (38-126); Anion Gap 10 mmol/L (4-12); Aspartate Amino Transferase 35 U/L (17-59); Bilirubin,Total 0.7 mg/dL (0.2-1.3); Blood Urea Nitrogen 25 mg/dL (9-20); Calcium 8.6 mg/dL (8.4-10.2); Carbon Dioxide 20 mmol/L (22-30); Chloride 104 mmol/L (98-107); Estimated CRCL calculation 115 ml/min; Estimated Glomerular Filt Rate > 60; Glucose 353 mg/dL (65-110); Potassium 3.4 mmol/L (3.4-5.0); Sodium 134 mmol/L (137-145)
[2023-10-01 18:12] LABS: Glucose Point of Care 234 mg/dl (65-105)
== END 2023-10-01 18:32 | disposition home or self-care (01) ==
PROVIDERS: Emergency Provider Emergency Medicine
DX: E11.65 Type 2 diabetes mellitus with hyperglycemia (principal); Z79.4 Long term (current) use of insulin; K21.9 Gastro-esophageal reflux disease without esophagitis; I10 Essential (primary) hypertension; I25.2 Old myocardial infarction
CPT/HCPCS: 36415; 36600; 80053; 81003; 82375; 82805; 82948; 83050; 83735; 84100; 85025; 96361; 96374; 99284; J1815; J7030

== ENCOUNTER 2024-01-22 23:56 | Emergency (ER) | payer OTHER, SELFPAY ==
--- NOTE | ~2024-01-22 | XR_ITS ---
EXAMINATION: XR chest 2V DATE: 01/23/2024 01:15 INDICATION: Dyspnea. TECHNIQUE: Frontal and lateral views of the chest were obtained. COMPARISON: Chest single view 02/02/2023, CT abdomen and pelvis 01/16/2023 FINDINGS: There is mild atelectasis in the lower lung zones. No pleural effusion or pneumothorax. The heart size is normal. There is an old healed fracture of left clavicle. IMPRESSION: 1. Mild atelectasis in the lower lung zones. Reviewed, dictated and finalized at location A.
[2024-01-23 00:01] VITALS: BP 137/86; PULSE 117; RESP 23; TEMP 36.7; O2SAT 96
[2024-01-23 00:40] VITALS: BP 125/89; PULSE 100; RESP 19; O2SAT 95
[2024-01-23 00:59] LABS: Influenza A QL RT-PCR Negative (Negative); Influenza B QL RT-PCR Negative (Negative); RSV RNA, RT-PCR Negative (Negative); SARS-CoV-2 RNA PCR Negative (Negative)
--- NOTE | 2024-01-23 01:07 | ED.URI ---
HPI - URI/Sore Throat General Chief Complaint: Upper Respiratory Infection Stated Complaint: n/v Time Seen by Provider: 01/23/24 00:47 History of Present Illness HPI Narrative: This is a 39-year-old male with a history of insulin-dependent diabetes, hypertension, hyperlipidemia. Today he presents to the emergency room with a chief complaint of a severe cough is persistent. He states he was diagnosed with a URI last week an urgent care and prescribed prednisone, Tessalon Perles, doxycycline. He states he is taking all his medications without any relief of his cough. He states his cough is so severe sometimes he gets a pain in his ribs. Denies any nauseousness or vomiting but is coughing up phlegm. Denies any vision changes, abdominal pain, back pain, chest pain, diarrhea, constipation. Has not received any imaging for his symptoms. Related Data Home Medications Medication Instructions Recorded Confirmed insulin aspar prt-insulin aspart 40 unit subcut BID 03/12/23 09/05/23 100 unit/mL (70-30) subcutaneous soln (Novolog Mix 70-30 U-100 Insuln) Allergies Allergy/AdvReac Type Severity Reaction Status Date / Time Penicillins Allergy Intermediate Rash Verified 01/23/24 00:42 lisinopril AdvReac Unknown Unknown Verified 01/23/24 00:42 Review of Systems Review of Systems: As reviewed above in HPI [facility] Past Medical History Medical History Diabetes GERD (gastroesophageal reflux disease) HLD (hyperlipidemia) Hx of myocardial infarction Hypertension Neuropathy Thyroid disorder Surgical History Surgical History No pertinent past surgical history Family History Family History Father History of ETOH abuse Diabetes mellitus Hypertension Mother Depression Grandparent Asthma Diabetes mellitus Depression Grandparent Asthma Other Family history of congestive heart failure Family history of malignant neoplasm Social History Social History Smoking status: Never smoker Smokeless tobacco user: chewing tobacco Alcohol intake: never Substance use: never Substance use type: does not use Lack of Transportation: No Lack of Food: Never True Current Housing: I Have Housing Concerned About Future Housing: No Difficulty Paying Gas/Electric Bills: No Difficulty Paying for Meds: No Currently Unemployed: No Education: High School Diploma/GED Difficulty w/ Childcare or Family Care: No Occupation/Education: occupation Additional occupation/education comments: [employer] Gender identity (if verbalized by the patient): Male Agree to blood products: No Exam Narrative: GENERAL: [Well-appearing, well-nourished, and in no acute distress.] HEAD: [Normocephalic, atraumatic.] EYES: [PERRLA and EOMI.] ENT: Nares clear, no rhinorrhea or epistaxis. Mucous membranes moist. NECK: Supple. CHEST: Crackles appreciated in the left lung base, no respiratory distress, no wheezing. Symmetric chest rise and aeration HEART: [Regular rate and rhythm]. No murmur heard. [Normal peripheral pulses.] ABDOMEN: [Soft, nondistended], [nontender], [No rigidity or guarding] EXTREMITIES: Normal range of motion. [No edema.] SKIN: Warm, dry, no rash. NEURO: [No focal deficits]. Alert and oriented [x3.] PSYCH: [Normal mood and affect.] Course Vital Signs Vital signs: Vital Signs Temperature 36.7 C 01/23/24 00:01 Pulse Rate 117 H 01/23/24 00:01 Respiratory Rate 23 H 01/23/24 00:01 Blood Pressure 137/86 01/23/24 00:01 Pulse Oximetry 96 01/23/24 00:01 Oxygen Delivery Room Air 01/23/24 00:01 Temperature 36.7 C 01/23/24 00:01 Pulse Rate 100 01/23/24 00:40 Respiratory Rate 19 01/23/24 00:40 Blood Pres
[2024-01-23] MEDS: IBUPROFEN 400 MG TABLET 800 MG PO (01:24)
[2024-01-23] MEDS: BENZONATATE 100 MG CAPSULE 200 MG PO (01:24)
[2024-01-23] MEDS: ACETAMINOPHEN 500 MG TABLET 1000 MG PO (01:25)
[2024-01-23 02:30] VITALS: BP 130/89; PULSE 76; RESP 16; O2SAT 96
== END 2024-01-23 02:45 | disposition home or self-care (01) ==
PROVIDERS: Emergency Provider Student in an Organized Health Care Education/Training Program
DX: J18.9 Pneumonia, unspecified organism (principal); J06.9 Acute upper respiratory infection, unspecified; Z20.822 Contact with and (suspected) exposure to COVID-19; I10 Essential (primary) hypertension; I25.2 Old myocardial infarction; E11.40 Type 2 diabetes mellitus with diabetic neuropathy, unspecified; E78.5 Hyperlipidemia, unspecified; E07.9 Disorder of thyroid, unspecified; K21.9 Gastro-esophageal reflux disease without esophagitis; F17.220 Nicotine dependence, chewing tobacco, uncomplicated; Z79.84 Long term (current) use of oral hypoglycemic drugs; Z79.899 Other long term (current) drug therapy
CPT/HCPCS: 71046; 87637; 99283; A9270

== ENCOUNTER 2024-04-15 20:20 | Emergency (ER) | payer OTHER, SELFPAY ==
[2024-04-15 20:23] VITALS: BP 133/78; PULSE 95; RESP 15; TEMP 36.7; O2SAT 100
--- NOTE | 2024-04-15 20:28 | ED.MALEGU ---
HPI - Male Genitourinary General Chief complaint: Urogenital-Male Stated complaint: penile pain Time Seen by Provider: 04/15/24 20:24 Source: patient and family () Mode of arrival: ambulatory Limitations: no limitations History of Present Illness HPI Narrative: Patient presents with a lesion on his penis he noticed yesterday. It is red and sore and associated with severe pain and burning. He denies any dysuria, hematuria. he does have urinary urgency and frequency but states he attributes this to his underlying diabetes mellitus as it is chronic. He denies any penile discharge. He is sexually active with women and states he is monogamous with his , only 1 sexual partner in the past 1 month. He denies any drainage from the lesion. he denies any scrotal pain. He has not yet taken anything for pain at home. He is also complaining of pain in his hip although he then points to his groin and clarifies that it is . Related Data Home Medications Medication Instructions Recorded Confirmed insulin aspar prt-insulin aspart 40 unit subcut BID 03/12/23 09/05/23 100 unit/mL (70-30) subcutaneous soln (Novolog Mix 70-30 U-100 Insuln) Allergies Allergy/AdvReac Type Severity Reaction Status Date / Time Penicillins Allergy Intermediate Rash Verified 04/15/24 20:38 lisinopril AdvReac Unknown Unknown Verified 04/15/24 20:38 [facility] Past Medical History Medical History Diabetes GERD (gastroesophageal reflux disease) HLD (hyperlipidemia) Hx of myocardial infarction Hypertension Neuropathy Thyroid disorder Surgical History Surgical History No pertinent past surgical history Family History Family History Father History of ETOH abuse Diabetes mellitus Hypertension Mother Depression Grandparent Asthma Diabetes mellitus Depression Grandparent Asthma Other Family history of congestive heart failure Family history of malignant neoplasm Social History Social History (Updated 04/15/24 @ 20:55 by Keri Roberto MD) Social History: Smoking status: Never smoker Smokeless tobacco user: chewing tobacco Alcohol intake: never Substance use: never Substance use type: does not use Lack of Transportation: No Lack of Food: Never True Current Housing: I Have Housing Concerned About Future Housing: No Difficulty Paying Gas/Electric Bills: No Difficulty Paying for Meds: No Currently Unemployed: No Education: High School Diploma/GED Difficulty w/ Childcare or Family Care: No Living arrangements: with family Occupation/Education: occupation Additional occupation/education comments: [employer] Gender identity (if verbalized by the patient): Male Agree to blood products: No Exam Narrative: GENERAL: Well-appearing, well-nourished, and in no acute distress. HEAD: Normocephalic, atraumatic. EYES: Non injected, non icteric ENT: Nares clear, no rhinorrhea or epistaxis. Poor dentition with multiple broken teeth NECK: Supple. CHEST: Speaking in full sentences. No respiratory distress. HEART: Regular rate and rhythm. ABDOMEN: Soft, nondistended. : Exam performed with KANG Ward present. There is an ulcerated subcentimeter lesion along the left aspect midshaft of penis. Some surrounding edema and erythema. No penile discharge. No scrotal swelling or mass. No tenderness to palpation of the scrotum but extreme tenderness to palpation of the lesion. He also has right inguinal lymphadenopathy. EXTREMITIES: Normal range of motion. No lower extremity edema. SKIN: Warm, dry, no rash. NEURO: No focal deficits. Alert and oriented x3. PSYCH: Pleasant. Normal mood and affect. Course Vital Signs Vital signs: Vital Signs Temperature 98.1 F 04/15/24 20:23 Pulse Rate 95 04/15/24 20:23 Respiratory Rate 15 04/15/24 20:23 Blood Pressure 133/78 04/15/24 20:23 Pulse Oximetry 100 04/15/24 20:23 Oxygen Delivery Room Air 04/15/24 20:23 Temperature 98.0 F 04/15/24 23:38 Pulse Rate 80 04/15/24 23:38 Respiratory Rate 16 04/15/24 23:38 Blood Pressure 126/72 04/15/24 23:38 Pulse Oximetry 100 04/15/24 23:38 Oxygen Delivery Room Air 04/15/24 20:23 MDM - Male Genitourinary MDM Narrative Medical decision making narrative: Patient presents with a penile lesion That is painful and burning but otherwise without drainage. He has no other genitourinary complaints. In the emergency department they are afebrile with vital signs within normal limits. It initially appears to be a superficial abrasion but also possibly an ulcerated area that is exquisitely tender. Some associated adjacent swelling. Also right inguinal Lymphadenopathy. While this likely just represents a reactive lymphadenopathy, will workup for alternative etiologies DIFFERENTIAL DIAGNOSIS for Ulcerative genital lesions: Chancroid, HSV (herpes simplex virus), Syphillis, Becet's Disease, LGV (lymphogranuloma venererum), granuloma inguinale (though painless), premalignant process, malignant process (e.g. squamous cell carcinoma of the penis) He has a leukocytosis. Very mild hyperglycemia without anion gap or acidosis. Given the likelihood that this just represents a superficial abrasion that that became mildly infected, will treat as a skin infection. Because patient's recently had MRSA, will provide coverage via antibiotics Keflex AND Bactrim. 1st dose provided in the emergency department with rest the course to follow. Advised on wound care, analgesic regimen, and taking the entire course of his antibiotics. He verifies understanding. Stable for discharge. Lab Data Attestation: I reviewed the patient's lab results. 04/15/24 21:18 04/15/24 21:17 Labs: Lab Results 04/15/24 04/15/24 04/15/24 Range/Units 21:00 21:17 21:18 WBC 16.8 H (4.5-10.0) K/mm3 RBC 4.51 L (4.6-6.20) M/mm3 Hgb 14.3 (14.0-18.0) g/dL Hct 42.8 (42.0-52.0) % MCV 94.9 (80-100) fl MCH 31.7 (26-34) pg MCHC 33.4 (32-36) g/dl RDW 13.2 (11.5-14.5) % Plt Count 229 (150-375) k/mm3 MPV 9.9 (7.4-10.4) fl Immature Gran % (Auto) 0.5 (0-0.5) % Neut % (Auto) 83.8 H (45.5-73.1) % Lymph % (Auto) 7.9 L (18.3-44.2) % [place] % (Auto) 6.8 (2.6-8.5) % Eos % (Auto) 0.5 (0-4.4) % Baso % (Auto) 0.5 (0.2-1.2) % Lymph # (Auto) 1.32 (0.9-3.2) K/mm3 [place] # (Auto) 1.1 H (0.1-0.6) K/mm3 Eos # (Auto) 0.1 (0-0.3) K/mm3 Baso # (Auto) 0.1 (0.0-0.1) K/mm3 Abs Immat Gran (auto) 0.09 H (0.00-0.031) K/mm3 Absolute Neuts (auto) 14.1 H (1.3-6.7) K/mm3 Absolute Nucleated RBC 0.000 (0.0-0.012) K/mm3 Nucleated RBC % 0.0 (0.0-0.2) % Sodium 140 (137-145) mmol/L Potassium 3.7 (3.4-5.0) mmol/L Chloride 102 (98-107) mmol/L Carbon Dioxide 29 (22-30) mmol/L Anion Gap 9 (4-12) mmol/L BUN 11 D (9-20) mg/dL Creatinine 0.90 (0.7-1.3) mg/dL Estim Creat Clear Calc 119 ml/min Estimated GFR > 60 (59 - ) Glucose 130 H (65-110) mg/dL POC Capillary Glucose (65-105) mg/dl Calcium 9.2 (8.4-10.2) mg/dL Urine Color (Yellow) Urine Appearance (Clear) Urine pH (5.0-9.0) Ur Specific Victor (1.001-1.035) Urine Protein (Negative) mg/dL Urine Glucose (UA) (Negative) mg/dL Urine Ketones (Negative) mg/dL Ur Blood (Man) (Negative) Urine Nitrate (Negative) Urine Bilirubin (Negative) Urine Urobilinogen (<2.0) mg/dL Leukocyte Esterase Rfl (Negative) PROSPER/UL Urine RBC (0-2) /hpf Urine WBC (0-3) /hpf Ur Squamous Epith Cells (Few) /hpf Urine Bacteria /hpf Urine Casts RPR Non-reactive (NonReactive) C. trachomatis (PCR) (NOT DETECTE) Herpes Virus Source Pending Herpes Simplex Culture Pending HIV 1&2 Ab/P24 Ag 4thGn Negative (Negative) N. gonorrhoeae (PCR) (NOT DETECTE) T. vaginalis (PCR) (NOT DETECTE) 04/15/24 04/15/24 Range/Units 21:29 22:10 WBC (4.5-10.0) K/mm3 RBC (4.6-6.20) M/mm3 Hgb (14.0-18.0) g/dL Hct (42.0-52.0) % MCV (80-100) fl MCH (26-34) pg MCHC (32-36) g/dl RDW (11.5-14.5) % Plt Count (150-375) k/mm3 MPV (7.4-10.4) fl Immature Gran % (Auto) (0-0.5) % Neut % (Auto) (45.5-73.1) % Lymph % (Auto) (18.3-44.2) % [place] % (Auto) (2.6-8.5) % Eos % (Auto) (0-4.4) % Baso % (Auto) (0.2-1.2) % Lymph # (Auto) (0.9-3.2) K/mm3 [place] # (Auto) (0.1-0.6) K/mm3 Eos # (Auto) (0-0.3) K/mm3 Baso # (Auto) (0.0-0.1) K/mm3 Abs Immat Gran (auto) (0.00-0.031) K/mm3 Absolute Neuts (auto) (1.3-6.7) K/mm3 Absolute Nucleated RBC (0.0-0.012) K/mm3 Nucleated RBC % (0.0-0.2) % Sodium (137-145) mmol/L Potassium (3.4-5.0) mmol/L Chloride (98-107) mmol/L Carbon Dioxide (22-30) mmol/L Anion Gap (4-12) mmol/L BUN (9-20) mg/dL Creatinine (0.7-1.3) mg/dL Estim Creat Clear Calc ml/min Estimated GFR (59 - ) Glucose (65-110) mg/dL POC Capillary Glucose 130 H (65-105) mg/dl Calcium (8.4-10.2) mg/dL Urine Color Yellow (Yellow) Urine Appearance Clear (Clear) Urine pH 6.0 (5.0-9.0) Ur Specific Victor 1.042 H (1.001-1.035) Urine Protein Trace (Negative) mg/dL Urine Glucose (UA) 3+ H (Negative) mg/dL Urine Ketones Trace H (Negative) mg/dL Ur Blood (Man) Negative (Negative) Urine Nitrate Negative (Negative) Urine Bilirubin Negative (Negative) Urine Urobilinogen 0.2 (<2.0) mg/dL Leukocyte Esterase Rfl Negative (Negative) PROSPER/UL Urine RBC 0-2 (0-2) /hpf Urine WBC 0-5 (0-3) /hpf Ur Squamous Epith Cells None seen (Few) /hpf Urine Bacteria None seen /hpf Urine Casts 0-2 RPR (NonReactive) C. trachomatis (PCR) Not detected (NOT DETECTE) Herpes Virus Source Herpes Simplex Culture HIV 1&2 Ab/P24 Ag 4thGn (Negative) N. gonorrhoeae (PCR) Not detected (NOT DETECTE) T. vaginalis (PCR) Not detected (NOT DETECTE) Discharge Plan Discharge Clinical Impression: Lesion of penis, Leukocytosis, Glucosuria Patient Disposition: Home, Self-Care Condition: Stable Instructions: Antibiotic Form, Leukocytosis (ED), Abrasion (ED), Skin Tear (ED) Additional Instructions: This is likely an abrasion that has started to become slightly infected. You received the 1st dose of antibiotics in the emergency department with the rest of the course prescribed. It is safe to take acetaminophen/Tylenol (maximum 4000mg/day) with ibuprofen as they can work together for pain and inflammation. Follow up with primary care physician; if you do not have one the name of a doctor is listed below. You will receive a phone call if the other test results show that the antibiotic regimen needs to be changed. Return to the ED if any new/worsening symptoms. Keep the area clean warm and dry. Safe to use soapy water but make sure entirely dry before applying a new daily bandage. Prescriptions: New ibuprofen 600 mg tablet 600 mg PO TID PRN (Reason: pain) Qty: 30 0RF acetaminophen 500 mg capsule 1,000 mg PO Q6H PRN (Reason: pain) Qty: 30 0RF bacitracin zinc 500 unit/gram ointment 1 applic topical TID Qty: 14 0RF cephalexin 500 mg capsule 500 mg PO Q8H 5 Days Qty: 14 0RF Rx Instructions: received first dose in ED 04/15 sulfamethoxazole-trimethoprim [Bactrim DS] 800-160 mg tablet 1 tablet PO Q12H 5 Days Qty: 9 0RF Rx Instructions: received first dose in ED 04/15 No Action ondansetron 4 mg tablet,disintegrating 4 mg PO Q6H PRN (Reason: nausea and vomiting) 3 Days Qty: 12 0RF omeprazole 40 mg capsule,delayed release(DR/EC) 40 mg PO DAILY Qty: 30 3RF insulin asp prt-insulin aspart [Novolog Mix 70-30 U-100 Insuln] 100 unit/mL (70-30) solution 40 unit subcut BID (DME) FreeStyle Kita 3 Sensor Device See Rx Instructions .Route Qty: 1 6RF Rx Instructions: As directed levofloxacin 750 mg tablet 750 mg PO DAILY Qty: 5 0RF guaifenesin [Mucinex] 1,200 mg tablet extended release 12hr 1,200 mg PO Q12H Qty: 20 0RF ibuprofen 800 mg tablet 800 mg PO TID PRN (Reason: pain) Qty: 30 0RF acetaminophen [Tylenol Extra Strength] 500 mg tablet 1,000 mg PO Q8H PRN (Reason: pain) Qty: 30 0RF Jardiance 25 mg tablet See Rx Instructions .ROUTE .COMPLEX Qty: 90 0RF Dose Instruction: Take 1 tablet by mouth once daily Rx Instructions: Take 1 tablet by mouth once daily bupropion HCl 150 mg tablet extended release 24 hr See Rx Instructions .ROUTE .COMPLEX Qty: 90 0RF Dose Instruction: TAKE 1 TABLET BY MOUTH IN THE MORNING Rx Instructions: TAKE 1 TABLET BY MOUTH IN THE MORNING pravastatin 20 mg tablet See Rx Instructions .ROUTE .COMPLEX Qty: 90 0RF Dose Instruction: TAKE 1 TABLET BY MOUTH EVERY DAY AT BEDTIME Rx Instructions: TAKE 1 TABLET BY MOUTH EVERY DAY AT BEDTIME metformin 500 mg tablet extended release 24 hr 500 mg PO DAILY Qty: 90 3RF losartan 25 mg tablet See Rx Instructions .ROUTE .COMPLEX Qty: 90 0RF Dose Instruction: Take 1 tablet by mouth once daily Rx Instructions: Take 1 tablet by mouth once daily levothyroxine 50 mcg tablet See Rx Instructions .ROUTE .COMPLEX Qty: 30 3RF Dose Instruction: Take 1 tablet by mouth once daily Rx Instructions: Take 1 tablet by mouth once daily gabapentin 300 mg capsule See Rx Instructions .ROUTE .COMPLEX Qty: 30 3RF Dose Instruction: Take 1 capsule by mouth once daily Rx Instructions: Take 1 capsule by mouth once daily sertraline 50 mg tablet 50 mg PO DAILY Qty: 30 6RF Follow-up/Referrals: Stephane Mcgovern MD [Physician] - (family practice) UNKNOWN,DOCTOR [Primary Care Provider] - Stand Alone Forms: Work/School Release IP Time of Disposition: 23:20
[2024-04-15] MEDS: HYDROcodone/acetaminophen (*CRX) 5-325 MG TABLET 1 TAB PO (21:00)
[2024-04-15 21:31] LABS: Glucose Point of Care 130 mg/dl (65-105)
[2024-04-15 21:33] LABS: Basophils Absolute Auto 0.1 K/mm3 (0.0-0.1); Basophils Percent Auto 0.5 % (0.2-1.2); Eosinophils Absolute Auto 0.1 K/mm3 (0-0.3); Eosinophils Percent Auto 0.5 % (0-4.4); Hematocrit 42.8 % (42.0-52.0); Hemoglobin 14.3 g/dL (14.0-18.0); Immature Granulocyte Absolute 0.09 K/mm3 (0.00-0.031); Immature Granulocyte Percent A 0.5 % (0-0.5); Lymphocytes Absolute Auto 1.32 K/mm3 (0.9-3.2); Lymphocytes Percent Auto 7.9 % (18.3-44.2); Mean Corpuscular HGB Conc 33.4 g/dl (32-36); Mean Corpuscular Hemoglobin 31.7 pg (26-34); Mean Corpuscular Volume 94.9 fl (80-100); Mean Platelet Volume 9.9 fl (7.4-10.4); Monocytes Absolute Auto 1.1 K/mm3 (0.1-0.6); Monocytes Percent Auto 6.8 % (2.6-8.5); Neutrophils Absolute Auto 14.1 K/mm3 (1.3-6.7); Neutrophils Percent Auto 83.8 % (45.5-73.1); Platelet Count Result 229 k/mm3 (150-375); Red Blood Count 4.51 M/mm3 (4.6-6.20); Red Cell Distribution Width 13.2 % (11.5-14.5); White Blood Count 16.8 K/mm3 (4.5-10.0)
[2024-04-15 21:43] LABS: Anion Gap 9 mmol/L (4-12); Blood Urea Nitrogen 11 mg/dL (9-20); Calcium 9.2 mg/dL (8.4-10.2); Carbon Dioxide 29 mmol/L (22-30); Chloride 102 mmol/L (98-107); Estimated CRCL calculation 119 ml/min; Estimated Glomerular Filt Rate > 60; Glucose 130 mg/dL (65-110); Potassium 3.7 mmol/L (3.4-5.0); Sodium 140 mmol/L (137-145)
[2024-04-15 22:11] VITALS: BP 123/77; PULSE 85; RESP 20; TEMP 36.7; O2SAT 95
[2024-04-15 22:25] LABS: Add Urine Microscopic? YES; Appearance Urine Clear (Clear); Bacteria Urine None Seen /hpf; Bilirubin Urine Negative (Negative); Blood Urine Negative (Negative); Color Urine Yellow (Yellow); Glucose Urine UA 3+ mg/dL (Negative); Ketones Urine Trace mg/dL (Negative); Leukocyte Esterase Ur Negative LEU/UL (Negative); Nitrate Urine Negative (Negative); Non Pathogenic Casts 0-2; Protein Urine Trace mg/dL (Negative); RBC Urine 0-2 /hpf (0-2); Specific Grav Ur 1.042 (1.001-1.035); Squamous Epithelial Cell Urine None Seen /hpf (Few); Urobilinogen Urine 0.2 mg/dL (<2.0); WBC Urine 0-5 /hpf (0-3)
[2024-04-15 22:34] LABS: HIV 1/2 Ab P24 Ag Result Negative (Negative)
[2024-04-15] MEDS: KETOROLAC 30 MG/ML VIAL (*BKC) 15 MG IM (23:16)
[2024-04-15] MEDS: BACITRACIN OINTMENT 15 GM TUBE 1 APPLIC TOPICAL (23:17)
[2024-04-15] MEDS: CEPHALEXIN 500 MG CAPSULE PO (23:25)
[2024-04-15] MEDS: SULFAMETHOXAZOLE/TRIMETHOPRIM 800/160 MG DS TABLET 1 TAB PO (23:25)
[2024-04-15 23:27] LABS: Trichomonas Vag PCR NOT DETECTED (NOT DETECTE)
[2024-04-15 23:38] VITALS: BP 126/72; PULSE 80; RESP 16; TEMP 36.7; O2SAT 100
[2024-04-15 23:52] LABS: Chlamydia trachomatis NOT DETECTED (NOT DETECTE); Neisseria gonorrhoeae PCR NOT DETECTED (NOT DETECTE)
[2024-04-16 09:47] LABS: Rapid Plasma Reagin Non-Reactive (NonReactive)
[2024-04-19 13:28] LABS: Source NOT GIVEN
== END 2024-04-15 23:40 | disposition home or self-care (01) ==
PROVIDERS: Emergency Provider Student in an Organized Health Care Education/Training Program
DX: N48.5 Ulcer of penis (principal); B95.62 Methicillin resistant Staphylococcus aureus infection as the cause of diseases classified elsewhere; D72.829 Elevated white blood cell count, unspecified; E11.40 Type 2 diabetes mellitus with diabetic neuropathy, unspecified; I10 Essential (primary) hypertension; I25.2 Old myocardial infarction; E78.5 Hyperlipidemia, unspecified; E07.9 Disorder of thyroid, unspecified; K21.9 Gastro-esophageal reflux disease without esophagitis; F17.220 Nicotine dependence, chewing tobacco, uncomplicated; Z79.899 Other long term (current) drug therapy; Z79.84 Long term (current) use of oral hypoglycemic drugs; Z79.4 Long term (current) use of insulin
CPT/HCPCS: 36415; 80048; 81001; 82948; 85025; 86592; 86703; 87070; 87181; 87205; 87255; 87491; 87591; 87661; 96372; 99283; A9270; G0432; J1885

== ENCOUNTER 2025-05-15 13:34 | Emergency (ER) | payer OTHER, SELFPAY ==
[2025-05-15 13:37] VITALS: BP 154/86; PULSE 96; RESP 20; TEMP 36.2; O2SAT 100
--- NOTE | 2025-05-15 14:22 | ED_ITS ---
HPI - Wound/Laceration General Chief Complaint: Wound/Laceration Stated Complaint: laceration Time Seen by Provider: 05/15/25 13:47 Source: patient Mode of arrival: ambulatory Limitations: no limitations History of Present Illness HPI narrative: 40-year-old with a history of hypertension, diabetes presents to the ER with a complains of laceration to his left hand. Patient states that he accidentally cut himself with a razor blade while he was at home working. His tetanus is up-to-date. Onset (ago): minute(s) (30) Extremity Location: Left: hand Place: home Context: accidental Associated symptoms: none Related Data Home Medications ?Medication ?Instructions ?Recorded ?Confirmed ?Last Taken ?Type insulin aspar prt-insulin aspart 40 unit subcut BID 09/05/23 Unknown History 100 unit/mL (70-30) subcutaneous soln (Novolog Mix 70-30 U-100 Insuln) Allergies Allergy/AdvReac Type Severity Reaction Status Date / Time Penicillins Allergy Intermediate Rash Verified 05/15/25 13:41 lisinopril AdvReac Unknown Unknown Verified 05/15/25 13:41 Review of Systems Review of Systems: All systems reviewed & are unremarkable except as noted in HPI and below Constitutional: Constitutional: Reports no additional constitutional complaints Eyes: Eyes: Reports no additional eye complaints ENT: Reports system reviewed and no additional complaints, except as d ocumented Cardiovascular: Cardiovascular: Reports no additional cardiovascular complaints Respiratory: Respiratory: Reports no additional respiratory complaints Gastrointestinal: Gastrointestinal: Reports no additional gastrointestinal co mplaints Musculoskeletal: Musculoskeletal: Reports as per HPI [facility] Past Medical History Medical History Diabetes GERD (gastroesophageal reflux disease) HLD (hyperlipidemia) Hx of myocardial infarction Hypertension Neuropathy Thyroid disorder Surgical History Surgical History No pertinent past surgical history Family History Family History Father History of ETOH abuse Diabetes mellitus Hypertension Mother Depression Grandparent Asthma Diabetes mellitus Depression Grandparent Asthma Other Family history of congestive heart failure Family history of malignant neoplasm Social History Social History Social History: Smoking status: Never smoker Smokeless tobacco user: chewing tobacco Alcohol intake: never Substance use: never Substance use type: does not use Lack of Transportation: No Lack of Food: Never True Current Housing: I Have Housing Concerned About Future Housing: No Difficulty Paying Gas/Electric Bills: No Difficulty Paying for Meds: No Currently Unemployed: No Education: High School Diploma/GED Difficulty w/ Childcare or Family Care: No Living arrangements: with family Occupation/Education: occupation Additional occupation/education comments: [employer] Gender identity (if verbalized by the patient): Male Agree to blood products: No Exam Narrative: GENERAL: Well-appearing, well-nourished, and in no acute distress. HEAD: Normocephalic, atraumatic. EYES: PERRLA and EOMI. ENT: Nares clear, no rhinorrhea or epistaxis. Mucous membranes moist. NECK: Supple. CHEST: Clear to auscultation. No respiratory distress. HEART: Regular rate and rhythm. No murmur heard. Normal peripheral pulses.. EXTREMITIES: Normal range of motion. No edema. 3 cm laceration on the thenar eminence on the left hand mild SKIN: Warm, dry, no rash. NEURO: No focal deficits. Alert and oriented x3. PSYCH: Normal mood and affect. Course Vital Signs Vital signs: Vital Signs Temperature 36.2 C L 05/15/25 13:37 Pulse Rate 96 05/15/25 13:37 Respiratory Rate 20 05/15/25 13:37 Blood Pressure 154/86 H 05/15/25 13:37 Pulse Oximetry 100 05/15/25 13:37 Oxygen Delivery Room Air 05/15/25 13:37 Temperature 36.2 C L 05/15/25 13:37 Pulse Rate 96 05/15/25 13:37 Respiratory Rate 20 05/15/25 13:37 Blood Pressure 154/86 H 05/15/25 13:37 Pulse Oximetry 100 05/15/25 13:37 Oxygen Delivery Room Air 05/15/25 13:37 Procedures Laceration Laceration 1: Date: 05/15/25 Time: 14:29 Site: upper extremity (left hand ) Side (If applicable): left Size (cm): 3 Local Anesthetic: lidocaine 1% ====== Skin Level ====== Skin layer closed with: nylon (4) Number of sutures: 6 Technique: running ====== Subcutaneous Layer ====== ====== Muscle Layer ====== ====== Tendon Layer ====== MDM Differential Diagnosis Differential Diagnosis: Laceration Discharge Plan Discharge Clinical Impression: Laceration of hand Qualifiers: Encounter type: initial encounter Foreign body presence: without foreign body Laterality: left Qualified Code(s): S61.412A - Laceration without foreign body of left hand, initial encounter Patient Disposition: Home Condition: Stable Instructions: Laceration (ED) Additional Instructions: Keep the wound clean , take antibiotic as prescribed , Sutures off 7 to 10 days , if infection return to the ER or follow with your doctor. Patient Language: Macedonian Prescriptions: New cephalexin 500 mg capsule 500 mg PO Q8H 7 Days Qty: 21 0RF No Action ondansetron 4 mg tablet,disintegrating 4 mg PO Q6H PRN (Reason: nausea and vomiting) 3 Days Qty: 12 0RF omeprazole 40 mg capsule,delayed release(DR/EC) 40 mg PO DAILY Qty: 30 3RF insulin asp prt-insulin aspart [Novolog Mix 70-30 U-100 Insuln] 100 unit/mL ( 70-30) solution 40 unit subcut BID (DME) FreeStyle Kita 3 Sensor Device See Rx Instructions .Route Qty: 1 6RF Rx Instructions: As directed levofloxacin 750 mg tablet 750 mg PO DAILY Qty: 5 0RF guaifenesin [Mucinex] 1,200 mg tablet extended release 12hr 1,200 mg PO Q12H Qty: 20 0RF ibuprofen 800 mg tablet 800 mg PO TID PRN (Reason: pain) Qty: 30 0RF acetaminophen [Tylenol Extra Strength] 500 mg tablet 1,000 mg PO Q8H PRN (Reason: pain) Qty: 30 0RF ibuprofen 600 mg tablet 600 mg PO TID PRN (Reason: pain) Qty: 30 0RF acetaminophen 500 mg capsule 1,000 mg PO Q6H PRN (Reason: pain) Qty: 30 0RF bacitracin zinc 500 unit/gram ointment 1 applic topical TID Qty: 14 0RF cephalexin 500 mg capsule 500 mg PO Q8H 5 Days Qty: 14 0RF Rx Instructions: received first dose in ED 04/15 sulfamethoxazole-trimethoprim [Bactrim DS] 800-160 mg tablet 1 tablet PO Q12H 5 Days Qty: 9 0RF Rx Instructions: received first dose in ED 04/15 Jardiance 25 mg tablet See Rx Instructions .ROUTE .COMPLEX Qty: 90 0RF Dose Instruction: Take 1 tablet by mouth once daily Rx Instructions: Take 1 tablet by mouth once daily bupropion HCl 150 mg tablet extended release 24 hr See Rx Instructions .ROUTE .COMPLEX Qty: 90 0RF Dose Instruction: TAKE 1 TABLET BY MOUTH IN THE MORNING Rx Instructions: TAKE 1 TABLET BY MOUTH IN THE MORNING pravastatin 20 mg tablet See Rx Instructions .ROUTE .COMPLEX Qty: 90 0RF Dose Instruction: TAKE 1 TABLET BY MOUTH EVERY DAY AT BEDTIME Rx Instructions: TAKE 1 TABLET BY MOUTH EVERY DAY AT BEDTIME metformin 500 mg tablet extended release 24 hr 500 mg PO DAILY Qty: 90 3RF losartan 25 mg tablet See Rx Instructions .ROUTE .COMPLEX Qty: 90 0RF Dose Instruction: Take 1 tablet by mouth once daily Rx Instructions: Take 1 tablet by mouth once daily levothyroxine 50 mcg tablet See Rx Instructions .ROUTE .COMPLEX Qty: 30 3RF Dose Instruction: Take 1 tablet by mouth once daily Rx Instructions: Take 1 tablet by mouth once daily gabapentin 300 mg capsule See Rx Instructions .ROUTE .COMPLEX Qty: 30 3RF Dose Instruction: Take 1 capsule by mouth once daily Rx Instructions: Take 1 capsule by mouth once daily sertraline 50 mg tablet 50 mg PO DAILY Qty: 30 6RF Follow-up/Referrals: Juan,Siada Knutson APRN [Primary Care Provider, Unknown] Time of Disposition: 14:25
== END 2025-05-15 14:38 | disposition home or self-care (01) ==
PROVIDERS: Emergency Provider Family Medicine; PCP Nurse Practitioner
DX: S61.412A Laceration without foreign body of left hand, initial encounter (principal); I10 Essential (primary) hypertension; I25.2 Old myocardial infarction; E78.5 Hyperlipidemia, unspecified; E07.9 Disorder of thyroid, unspecified; E11.40 Type 2 diabetes mellitus with diabetic neuropathy, unspecified; K21.9 Gastro-esophageal reflux disease without esophagitis; F17.220 Nicotine dependence, chewing tobacco, uncomplicated; Z79.4 Long term (current) use of insulin; W27.0XXA Contact with workbench tool, initial encounter
CPT/HCPCS: 12002; 99283